=== PATIENT | male | born 1950 | race Caucasian/White ===

== ENCOUNTER 2019-06-17 02:00 | Emergency (ER) | payer OTHER, BC ==
[~2019-06-17] VITALS: Ht 185.4 cm; Wt 102.5 kg
[~2019-06-17 02:00] MED LIST: ASPI325 PO; ATOR80 PO; CARV6.25 PO; CARVEDILOL ER20 MG PO; CEPH500 PO; CLIN300 PO; CLOP75 PO; ESOM20 PO; FAMO20 PO; LOSA25 PO; METO25ER PO; Nitroglycerin0.4 MG SL; ONDA4ODT MM; PANT20 PO
[2019-06-17 04:03] LABS: BASOPHILS ABSOLUTE AUTO 0.02 K/mm3 (0.00-0.23); BASOPHILS PERCENT AUTO 0 % (0-2); EOSINOPHILS ABSOLUTE AUTO 0.16 K/mm3 (0.00-0.68); EOSINOPHILS PERCENT AUTO 3 % (0-6); Hemoglobin 15.2 g/dL (13.5-17.5); IMMATURE GRAN ABSOLUTE AUTO 0.01 K/mm3 (0.00-0.10); IMMATURE GRAN PERCENT AUTO 0 % (0-1); LYMPHOCYTES ABSOLUTE AUTO 2.08 K/mm3 (0.84-5.20); LYMPHOCYTES PERCENT AUTO 35 % (21-46); MONOCYTES ABSOLUTE AUTO 0.68 K/mm3 (0.16-1.47); MONOCYTES PERCENT AUTO 12 % (4-13); Mean Corpuscular HGB 30.5 pg (26.0-34.0); Mean Corpuscular Volume 92 fL (80-100); Mean Platelet Volume 12.5 fL (9.1-12.4); NEUTROPHILS ABSOLUTE AUTO 2.92 K/mm3 (1.96-9.15); NEUTROPHILS PERCENT AUTO 50 % (41-73); Platelet Count 185 K/mm3 (150-400); RDW Coefficient Variation 13.9 % (11.7-14.2); RDW Standard Deviation 47.2 fL (35.1-46.3); Red Blood Cell Count 4.99 M/mm3 (4.30-5.90); White Blood Cell Count 5.87 K/mm3 (4.00-11.30)
[2019-06-17 04:22] LABS: Alanine Aminotransfer (ALT/SGP 24 U/L (12-78); Albumin, Blood 4.2 g/dL (3.4-5.0); Albumin/Globulin Ratio 1.2 (0.8-1.8); Alk Phos 88 U/L (50-136); Anion Gap 7 mmol/L (6-16); Aspartate Aminotrans (AST/SGOT 20 U/L (12-37); Bilirubin, Total 0.5 mg/dL (0.1-1.0); Blood Urea Nitrogen 19 mg/dL (8-24); Bun/Creatinine Ratio 16.8 (12.0-20.0); CO2, Blood 28 mmol/L (21-32); Calcium, Blood 9.1 mg/dL (8.5-10.1); Chloride, Blood 108 mmol/L (98-108); Creatinine, Blood 1.13 mg/dL (0.60-1.20); Globulin, Blood 3.4 g/dL (2.2-4.0); Glomerular Filtration Rate >60 (60-); Glucose, Blood 137 mg/dL (70-99); Potassium, Blood 4.2 mmol/L (3.5-5.5); Sodium, Blood 143 mmol/L (136-145); Total Protein, Blood 7.6 g/dL (6.4-8.2)
[2019-06-17] MEDS ORDERED: Augmentin 875-1 EACH PO (05:51)
[2019-06-18 04:31] LABS: HCV ANTIBODY 0.2 (0.0-0.9)
[2019-06-18 07:32] LABS: HIV SCREEN 4TH GENERATION WRFX Non Reactive (Non Reactive)
== END 2019-06-17 06:20 | disposition home or self-care (01) ==
LOC: ER 02:00
PROVIDERS: Emergency Medicine
DX: S51.851A Open bite of right forearm, initial encounter (principal); S50.11XA Contusion of right forearm, initial encounter; I25.10 Atherosclerotic heart disease of native coronary artery without angina pectoris; Z79.899 Other long term (current) drug therapy; Z87.891 Personal history of nicotine dependence; W50.3XXA Accidental bite by another person, initial encounter
CPT/HCPCS: 80053; 85025; 86317; 86703; 86803; 87340; 87389; 99283

== ENCOUNTER → 2019-08-14 | Outpatient (CLI) | payer OTHER, BC ==
[~2019-08-14] MED LIST changes: +Augmentin 875-1 EACH PO
[2019-08-15 07:08] LABS: HIV SCREEN 4TH GENERATION WRFX Non Reactive (Non Reactive)
== END | disposition home or self-care (01) ==
LOC: LAB EV 11:03 → LAB SHORT 11:03
PROVIDERS: Physician Assistant Medical
DX: Z20.9 Contact with and (suspected) exposure to unspecified communicable disease (principal)
CPT/HCPCS: 86803; 87389

== ENCOUNTER → 2019-09-18 | Outpatient (CLI) | payer OTHER, BC | END | disposition home or self-care (01) | LOC: LAB EV 14:48 → LAB SHORT 14:48 | DX: Z20.9 Contact with and (suspected) exposure to unspecified communicable disease (principal) | CPT/HCPCS: 86803 ==

== ENCOUNTER 2022-09-08 04:59 | Inpatient (IN) | payer BC ==
[~2022-09-08] VITALS: Ht 185.4 cm; Wt 106.4 kg
[~2022-09-08 04:59] MED LIST changes: +Amlodipine Bes2.5 MG PO; -CARVEDILOL ER20 MG PO; +COENZYME Q-10200 M1 PO; +COREG12.5 M1 PO; +OMEP20ER PO; +REPATHA SU140 MG/1 M SQ
[2022-09-08 05:27] LABS: BASOPHILS ABSOLUTE AUTO 0.04 K/mm3 (0.00-0.23); BASOPHILS PERCENT AUTO 1 % (0-2); EOSINOPHILS ABSOLUTE AUTO 0.29 K/mm3 (0.00-0.68); EOSINOPHILS PERCENT AUTO 5 % (0-6); Hematocrit 44.2 % (37.0-53.0); Hemoglobin 15.6 g/dL (13.5-17.5); IMMATURE GRAN ABSOLUTE AUTO 0.01 K/mm3 (0.00-0.10); IMMATURE GRAN PERCENT AUTO 0 % (0-1); LYMPHOCYTES ABSOLUTE AUTO 2.41 K/mm3 (0.84-5.20); LYMPHOCYTES PERCENT AUTO 39 % (21-46); MONOCYTES ABSOLUTE AUTO 0.81 K/mm3 (0.16-1.47); MONOCYTES PERCENT AUTO 13 % (4-13); Mean Corpuscular HGB 32.4 pg (26.0-34.0); Mean Corpuscular HGB Conc 35.3 g/dL (31.5-36.5); Mean Corpuscular Volume 92 fL (80-100); Mean Platelet Volume 10.8 fL (9.1-12.4); NEUTROPHILS ABSOLUTE AUTO 2.63 K/mm3 (1.96-9.15); NEUTROPHILS PERCENT AUTO 43 % (41-73); Platelet Count 218 K/mm3 (150-400); RDW Coefficient Variation 13.1 % (11.7-14.2); RDW Standard Deviation 43.8 fL (35.1-46.3); Red Blood Cell Count 4.82 M/mm3 (4.30-5.90); White Blood Cell Count 6.19 K/mm3 (4.00-11.30)
[2022-09-08 05:41] LABS: International Normalized Ratio 0.94; Prothrombin Time Results 9.9 Sec (9.7-11.5)
[2022-09-08 05:48] LABS: Albumin/Globulin Ratio 1.2 (0.8-1.8); Bilirubin, Total 0.4 mg/dL (0.1-1.0); Bun/Creatinine Ratio 15.1 (12.0-20.0); Calcium, Blood 9.2 mg/dL (8.5-10.1); Creatinine, Blood 1.19 mg/dL (0.60-1.20); Globulin, Blood 3.2 g/dL (2.2-4.0); Potassium, Blood 3.8 mmol/L (3.5-5.5); Total Protein, Blood 7.2 g/dL (6.4-8.2)
[2022-09-08] MEDS ORDERED: OZEMPIC1 MG/0.72 SQ (06:35)
[2022-09-08] MEDS ORDERED: REPATHA SY140 MG/1 M SQ (06:35)
[2022-09-08 11:50] VITALS: BP 152/89
[2022-09-08] MEDS ORDERED: THERA-D2000 UNIT PO (12:30)
[2022-09-08] MEDS ORDERED: B-COMPLEX WITH1 EAC2 PO (12:31)
[2022-09-08] MEDS ORDERED: SELENIUM (12:32)
--- NOTE | 2022-09-08 14:25 | NUR ---
"Spiritual Care | Pt./Nurse Request Pt. is awake in bed and welcomes my visit. Pt. is pleasant and clearly verbalizes his diagnosis and prognosis. Pt. is a retired ED nurse, and verbalizes the great care he has received. Facilitated a life review and considered matters of daiana and belief althewhile establishing rapport. Pt. displayed moments of significant emotion as well as expressing appreciation for the visit. Prayed with Pt. Pt. verbalized gratitude for the spiritual care visit, and welcomed this act tutor to visit again."
--- NOTE | 2022-09-08 16:13 | NUR ---
THIS RN UPD[facility]. ORDERS PLACED FOR CARDIOLOGY CONSULT AND HEPARIN CONSULT FROM PHARMACY. ANTI-XA LAB DRAWN, ALLAN RAMIREZ'D, CONSULT CALLED IN TO [facility] FOR DR BRICENO.
[2022-09-08 16:30] LABS: Anti-Xa UFH, PHA Monitoring 0.2 IU/mL
[2022-09-08 16:49] VITALS: BP 122/70
--- NOTE | 2022-09-08 17:38 | NUR ---
SHIFT SUMMARY NEW ADMIT TO MED FLOOR FROM ER FOR CP AND SLIGHTLY ELEV TROPS. TROPS CONTINUE TO TREND UP, LATEST RESULT AT THIS TIME 133. DR BRICENO IS CONSULTED BUT HAS NOT SEEN PATIENT AT THIS TIME. HEPARIN GTT RUNNING PER PHARMACY ORDERS IN EMAR. PATIENT ALERT, ORIENTED, PLEASANT. TOLERATING CARDIAC/ADA DIET AND LIQUIDS. VOIDING WELL. PERSISTENT HEADACHE, STATES IS NORMAL DAY AFTER OZEMPIC DOSE. MANAGED WITH ICE PACK AND TYLENOL. NSR 87 ON TELE. CHEM BGS NORMAL RANGE. RESTING IN BED A THIS TIME.
[2022-09-08 20:22] VITALS: BP 124/65
[2022-09-09] VITALS (12 sets, daily range): BP systolic 99–155; BP diastolic 48–100
[2022-09-09 05:13] LABS: BASOPHILS ABSOLUTE AUTO 0.04 K/mm3 (0.00-0.23); BASOPHILS PERCENT AUTO 0 % (0-2); EOSINOPHILS ABSOLUTE AUTO 0.37 K/mm3 (0.00-0.68); EOSINOPHILS PERCENT AUTO 3 % (0-6); Hematocrit 39.8 % (37.0-53.0); Hemoglobin 14.1 g/dL (13.5-17.5); IMMATURE GRAN ABSOLUTE AUTO 0.01 K/mm3 (0.00-0.10); IMMATURE GRAN PERCENT AUTO 0 % (0-1); LYMPHOCYTES ABSOLUTE AUTO 2.08 K/mm3 (0.84-5.20); LYMPHOCYTES PERCENT AUTO 19 % (21-46); MONOCYTES ABSOLUTE AUTO 1.06 K/mm3 (0.16-1.47); MONOCYTES PERCENT AUTO 10 % (4-13); Mean Corpuscular HGB 32.5 pg (26.0-34.0); Mean Corpuscular HGB Conc 35.4 g/dL (31.5-36.5); Mean Corpuscular Volume 92 fL (80-100); Mean Platelet Volume 11.4 fL (9.1-12.4); NEUTROPHILS ABSOLUTE AUTO 7.26 K/mm3 (1.96-9.15); NEUTROPHILS PERCENT AUTO 67 % (41-73); Platelet Count 176 K/mm3 (150-400); RDW Coefficient Variation 13.2 % (11.7-14.2); RDW Standard Deviation 44.1 fL (35.1-46.3); Red Blood Cell Count 4.34 M/mm3 (4.30-5.90); White Blood Cell Count 10.82 K/mm3 (4.00-11.30)
[2022-09-09 05:49] LABS: Albumin, Blood 3.5 g/dL (3.4-5.0); Albumin/Globulin Ratio 1.2 (0.8-1.8); Bilirubin, Total 0.8 mg/dL (0.1-1.0); Bun/Creatinine Ratio 13.4 (12.0-20.0); Creatinine, Blood 1.12 mg/dL (0.60-1.20); Potassium, Blood 3.9 mmol/L (3.5-5.5); Total Protein, Blood 6.5 g/dL (6.4-8.2)
--- NOTE | 2022-09-09 12:37 | NUR ---
PATIENT OFF FLOOR FOR AN ANGIOGRAM. PATIENT WILL GO TO PCU 18 AFTER PROCEDURE. REPORT CALLED TO HARSHA TURCIOS.
--- NOTE | 2022-09-09 13:09 | NUR ---
Pt is sitting up in bed, alert, oriented and pleasantly conversant. Denies any symptoms at this time. Right wrist arterial access site WNL and TR band in place. NO bleeding, no bruising, no swelling, no hematoma. Radial pulse palpable, distal capillary refill less than 3 seconds. Normal sinus rhythm noted at 74 bpm, by bedside monitoring specialist. Vital signs stable.
--- NOTE | 2022-09-09 14:52 | NUR ---
RN/DAY SHIFT SUMMARY POST PROCEDURAL REPORT RECIEVED VIA PHONE FROM THE [facility] FLOOR NURSE. THE PATIENT ARRIVED IN GOOD SPIRITS WITH A NEWLY AQUIRED ANGIO PUNCTURE SITE. THE SITE WAS ASSESSED DURING THE GREETING WITH THE PATIENT. THE SITE IS UNREMARKABLE. THE PATIENT WAS THEN ASSESSED WITH NO KNOWN ISSUES AT THIS TIME. CONTINUING TO MONITOR UNTIL YARD WAREHOUSE WORKER NURSE AQUIRES CARE.
[2022-09-09] MEDS ORDERED: ASPI81CH PO (16:35)
== END 2022-09-09 19:38 | disposition home or self-care (01) | DRG 281 ==
LOC: ER 04:59 → MEDS 05:00 → PCU 09-09 12:58
PROVIDERS: Student in an Organized Health Care Education/Training Program; ADMIT Internal Medicine
PROC: 4A023N7 Measurement of Cardiac Sampling and Pressure, Left Heart, Percutaneous Approach (ICD-10-PCS; principal; 2022-09-09)
PROC: B2111ZZ Fluoroscopy of Multiple Coronary Arteries using Low Osmolar Contrast (ICD-10-PCS; 2022-09-09)
PROC: 4A033BC Measurement of Arterial Pressure, Coronary, Percutaneous Approach (ICD-10-PCS; 2022-09-09)
PROC: B240ZZZ Ultrasonography of Single Coronary Artery (ICD-10-PCS; 2022-09-09)
DX: T82.855A Stenosis of coronary artery stent, initial encounter (principal); I21.4 Non-ST elevation (NSTEMI) myocardial infarction; I24.9 Acute ischemic heart disease, unspecified; K21.9 Gastro-esophageal reflux disease without esophagitis; I25.119 Atherosclerotic heart disease of native coronary artery with unspecified angina pectoris; I10 Essential (primary) hypertension; E66.9 Obesity, unspecified; E11.69 Type 2 diabetes mellitus with other specified complication; I27.20 Pulmonary hypertension, unspecified; I08.3 Combined rheumatic disorders of mitral, aortic and tricuspid valves; E78.5 Hyperlipidemia, unspecified; Y83.8 Other surgical procedures as the cause of abnormal reaction of the patient, or of later complication, without mention of misadventure at the time of the procedure; Z79.02 Long term (current) use of antithrombotics/antiplatelets; Z79.899 Other long term (current) drug therapy; Z87.891 Personal history of nicotine dependence; Z95.5 Presence of coronary angioplasty implant and graft; Z68.30 Body mass index [BMI] 30.0-30.9, adult; Z88.8 Allergy status to other drugs, medicaments and biological substances; Z79.82 Long term (current) use of aspirin; Z79.84 Long term (current) use of oral hypoglycemic drugs; I25.2 Old myocardial infarction
CPT/HCPCS: 36415; 71045; 76937; 80053; 82947; 83036; 83690; 83880; 84484; 85025; 85347; 85520; 85610; 85730; 93005; 93010; 93306; 93458; 93571; 93572; 99152; 99153; 99285-25; A9270; C1769; C1887; C1894; J1644; J1650; J2250; J3010; J7030; J7050; Q9967

== ENCOUNTER 2024-02-29 11:24 | Day surgery (SDC) | payer BC ==
[2024-02-29] VITALS (8 sets, daily range): BP systolic 151–177; BP diastolic 85–96
[~2024-02-29] VITALS: Ht 185.4 cm; Wt 98.8 kg
[~2024-02-29 11:24] MED LIST changes: +ASPI81CH PO; +B-COMPLEX WITH1 EAC2 PO; +MAGNESIUM; +OZEMPIC1 MG/0.72 SQ; +REPATHA SY140 MG/1 M SQ; +SELENIUM; +VASCEPA1 G1 PO; +VITAMIN D33000 UNIT PO; +Vitamin C100 M1 PO
[2024-02-29] MEDS ORDERED: CeFAZolin Sodium 2,000 MG in NS 100 ML IV SCH (12:40)
[2024-02-29] MEDS ORDERED: Lactated Ringer's 1,000 ML IV SCH (12:40)
--- NOTE | 2024-02-29 13:15 | NUR ---
History, Chart, Medications and Allergies reviewed before start of procedure. Lungs clear T/O to Auscultation. Patient confirms NPO status and agrees with scheduled surgery. Patient reports completing Chlorhexadine shower X2 prior to admission to hospital. Pre-Op teaching done. Pt verbalizes understanding.
[2024-02-29] MEDS ORDERED: CeFAZolin Sodium 2,000 MG VIAL ONE (13:19)
[2024-02-29] MEDS ORDERED: Midazolam HCl 1MG / ML 2ML Vial ONE (14:01)
[2024-02-29] MEDS ORDERED: FentaNYL Citrate 50 MCG/ML 2 ML Injection ONE (14:01)
[2024-02-29] MEDS ORDERED: propofoL 20 ML IV ONE (14:04)
[2024-02-29] MEDS ORDERED: Rocuronium Bromide 10 MG/ML 5ML Injection IV ONE (15:04)
[2024-02-29] MEDS ORDERED: Phenylephrine HCl 100 MCG/ML-NS 10MLSYR (1MG/10ML) ONE (15:25)
--- NOTE | 2024-02-29 15:48 | NUR ---
02/29/24 1548 Sofia Cummings PERFORMED A RIGHT BRACHIAL PLEXUS NERVE BLOCK AT BEDSIDE IN THE PREOP SETTING PRIOR TO ARRIVING IN THE OR.
[2024-02-29] MEDS ORDERED: Sugammadex Sodium 200 MG/2ML SDV (100 MG/ML) ONE (15:49)
[2024-02-29] MEDS ORDERED: Ondansetron HCl 2 MG / ML 2ML Vial ONE (16:04)
[2024-02-29] MEDS ORDERED: OxyCODONE 5 mg/Acetamin 325 mg TABLET PO PRN (16:30)
--- NOTE | 2024-02-29 17:42 | NUR ---
Discharge instructions reviewed with patient. Patient verbalizes understanding. Copy given to patient to take home. Dressings c/d/i. Sling in place. Prescription filled prior to surgery. Patient States Post-Procedure ride home has been arranged. Discharged via wheelchair to private car for ride home.
== END 2024-02-29 17:40 | disposition home or self-care (01) ==
LOC: ORSCMMR 11:24 → ORD 13:30 → ORSCMMR 13:30
PROVIDERS: Orthopaedic Surgery
PROC: 0LQ30ZZ Repair Right Upper Arm Tendon, Open Approach (ICD-10-PCS; principal; 2024-02-29 13:30)
DX: S46.211A Strain of muscle, fascia and tendon of other parts of biceps, right arm, initial encounter (principal); I25.10 Atherosclerotic heart disease of native coronary artery without angina pectoris; Z87.891 Personal history of nicotine dependence; Z79.85 Long-term (current) use of injectable non-insulin antidiabetic drugs; Z79.82 Long term (current) use of aspirin; Z79.899 Other long term (current) drug therapy
CPT/HCPCS: 82947; C1713; J0690; J2250; J2371; J2405; J2704; J3010; J7120